=== PATIENT | female | born 1980 | race Caucasian/White ===

== ENCOUNTER 2018-07-11 04:16 | Emergency (ER) | payer MEDICAID, OTHER ==
[~2018-07-11] VITALS: Ht 170.2 cm; Wt 86.4 kg
[2018-07-11 04:16] VITALS: BP 149/85
[~2018-07-11 04:16] MED LIST: CARB200T PO; CHOL400C8 PO; LAMO200T2 PO; LORA1TAB PO; LYSI100013 PO; SERT50TA PO; ZOLP5TAB8 PO
[2018-07-11] MEDS ORDERED: ketorolac trometh inj. 60 MG/2 ML VIAL IM ONE (08:45)
== END 2018-07-11 10:33 | disposition home or self-care (01) ==
LOC: EEVIPCON 04:16 → ER 04:16
DX: T74.21XA Adult sexual abuse, confirmed, initial encounter (principal); R10.30 Lower abdominal pain, unspecified; G89.29 Other chronic pain; J45.909 Unspecified asthma, uncomplicated; F17.210 Nicotine dependence, cigarettes, uncomplicated; Z88.6 Allergy status to analgesic agent; Z88.5 Allergy status to narcotic agent; Z79.899 Other long term (current) drug therapy; Z60.2 Problems related to living alone; Y07.59 Other non-family member, perpetrator of maltreatment and neglect
CPT/HCPCS: 96372; 99284; J1885; 99283

== ENCOUNTER 2018-07-15 16:58 | Emergency (ER) | payer MEDICAID, OTHER ==
[~2018-07-15] VITALS: Ht 167.6 cm; Wt 86.4 kg
[2018-07-15 17:03] VITALS: BP 106/70
[2018-07-15] MEDS ORDERED: ketorolac trometh inj. 60 MG/2 ML VIAL IM ONE (18:30)
[2018-07-15] MEDS ORDERED: IBUP-1984 PO (18:46)
[2018-07-15] MEDS ORDERED: ORPH100T2 PO (18:46)
== END 2018-07-15 19:08 | disposition home or self-care (01) ==
LOC: ER 16:59
DX: M25.511 Pain in right shoulder (principal); J45.909 Unspecified asthma, uncomplicated; M79.7 Fibromyalgia; F12.90 Cannabis use, unspecified, uncomplicated; Z98.890 Other specified postprocedural states; Z98.51 Tubal ligation status; Z88.6 Allergy status to analgesic agent; Z88.5 Allergy status to narcotic agent; Z79.899 Other long term (current) drug therapy
CPT/HCPCS: 96372; 99283; J1885

== ENCOUNTER 2019-07-04 18:37 | Emergency (ER) | payer MEDICAID, OTHER ==
[~2019-07-04] VITALS: Ht 167.6 cm; Wt 90.9 kg
[~2019-07-04 18:37] MED LIST changes: +CYCL-1 PO; +ORPH100T2 PO
[2019-07-04 18:39] VITALS: BP 114/68
[2019-07-04] MEDS ORDERED: CLIN-96 PO (18:57)
== END 2019-07-04 19:12 | disposition home or self-care (01) ==
LOC: ER 18:38
DX: L03.317 Cellulitis of buttock (principal); J45.909 Unspecified asthma, uncomplicated; G89.29 Other chronic pain; F31.9 Bipolar disorder, unspecified; F12.90 Cannabis use, unspecified, uncomplicated; Z98.51 Tubal ligation status; Z98.890 Other specified postprocedural states; Z60.2 Problems related to living alone; Z88.5 Allergy status to narcotic agent; Z79.2 Long term (current) use of antibiotics; Z79.899 Other long term (current) drug therapy
CPT/HCPCS: 99283

== ENCOUNTER 2020-03-13 10:48 | Emergency (ER) | payer MEDICAID ==
[~2020-03-13] VITALS: Ht 167.6 cm; Wt 90.0 kg
[~2020-03-13 10:48] MED LIST changes: +CLIN-97 PO
[2020-03-13] MEDS ORDERED: CefTRIAXone 250MG IM Kit w/LIDOcaine IM ONE (11:25)
[2020-03-13] MEDS ORDERED: azithromycin 250mg tablet PO ONE (11:25)
[2020-03-13 11:42] LABS: CLARITY,URINE SLIGHTLY CLOUDY (Clear); COLOR,URINE YELLOW (Yellow); GLUCOSE, URINE NEGATIVE (Neg); KETONES,URINE NEGATIVE (Neg); LEUKOCYTE ESTERASE ,URINE SMALL (Neg); NITRITES, URINE NEGATIVE (Neg); OCCULT BLOOD,URINE SMALL (Neg); PH,URINE 5.5 (4.8-8.0); PROTEIN,URINE NEGATIVE (Neg); UROBILINOGEN,URINE 0.2 E.U/dL (0.2-1.0)
[2020-03-13 11:43] LABS: UA COLLECTION TYPE CLN CATCH MIDSTREAM
[2020-03-13 11:55] LABS: MUCUS STRANDS MANY /LPF (Neg); SQUAMOUS EPITHELIAL CELL,UR MANY /LPF (FEW)
[2020-03-13 11:57] LABS: BACTERIA,URINE FEW /HPF (Neg); RBC,URINE 0-2 /HPF (0-2)
[2020-03-13] MEDS ORDERED: METR-159 PO (12:31)
[2020-03-13 12:38] VITALS: BP 110/60
== END 2020-03-13 12:40 | disposition home or self-care (01) ==
LOC: ER 10:48
DX: N89.8 Other specified noninflammatory disorders of vagina (principal); A59.01 Trichomonal vulvovaginitis; J45.909 Unspecified asthma, uncomplicated; G89.29 Other chronic pain; M79.7 Fibromyalgia; F31.9 Bipolar disorder, unspecified; F12.90 Cannabis use, unspecified, uncomplicated; Z98.51 Tubal ligation status; Z98.890 Other specified postprocedural states; Z60.2 Problems related to living alone; Z88.5 Allergy status to narcotic agent; Z88.6 Allergy status to analgesic agent; Z79.899 Other long term (current) drug therapy
CPT/HCPCS: 36415; 81001; 87210; 87491; 87591; 96372; 99283; J0696

== ENCOUNTER 2020-12-01 14:29 | Emergency (ER) | payer MEDICAID ==
[~2020-12-01] VITALS: Ht 152.4 cm; Wt 90.0 kg
[2020-12-01] MEDS ORDERED: LIDOcaine 1% W/epiNEPHrine 1:200,000 10ml vial IJ ONE (14:45)
[2020-12-01] MEDS ORDERED: TETanus/Pertussis (Acell)/Diphther VAC/PF (Tdap-Adult) 0.5ml syringe IMVAC ONE (14:45)
[2020-12-01] MEDS ORDERED: LORazepam 1 MG tablet PO ONE (14:45)
[2020-12-01] MEDS ORDERED: CefTRIAXone 250MG IM Kit w/LIDOcaine IM ONE (15:15)
[2020-12-01] MEDS ORDERED: azithromycin 250mg tablet PO ONE (15:15)
[2020-12-01 15:26] LABS: BASOPHILS % (AUTO) 0.3 % (0-1); EOSINOPHILS # (AUTO) 0.1 X10'3 (0-0.9); EOSINOPHILS % (AUTO) 1.4 % (0-6); HEMATOCRIT 34.9 % (35.0-45.0); LYMPHOCYTES # (AUTO) 1.6 X10'3 (1.1-4.8); LYMPHOCYTES % (AUTO) 18.4 % (21-51); MEAN CORPUSCULAR HEMOGLOBIN 27.6 PG (27.0-31.0); MEAN CORPUSCULAR HGB CONC 34.3 g/dL (33.0-36.5); MEAN CORPUSCULAR VOLUME 80.4 FL (78-98); MEAN PLATELET VOLUME 6.9 FL (7.4-10.4); MONOCYTES # (AUTO) 0.5 X10'3 (0-0.9); NEUTROPHILS # (AUTO) 6.5 X10'3 (1.8-7.7); NEUTROPHILS % (AUTO) 73.9 % (42-75); PLATELET COUNT 363 X10'3 (140-440); RED BLOOD COUNT 4.33 X10'6 (4.20-5.60); RED CELL DISTRIBUTION WIDTH 13.7 % (11.5-14.5); WHITE BLOOD COUNT 8.8 X10'3 (4.5-11.0)
[2020-12-01 15:33] LABS: PARTIAL THROMBOPLASTIN TIME 25 SECONDS (22-32)
[2020-12-01 15:37] LABS: ALANINE AMINOTRANSFERASE 28 U/L (12-78); ALBUMIN/GLOBULIN RATIO 1.1 (1.1-1.5); ALKALINE PHOSPHATASE 62 IU/L (46-116); ANION GAP 10 (8-16); ASPARTATE AMINO TRANSFERASE 20 U/L (10-37); BILIRUBIN,TOTAL 0.3 MG/DL (0.1-1.0); BLOOD UREA NITROGEN 8 MG/DL (7-18); BUN/CREATININE RATIO 8.2 (6.6-38.0); CHLORIDE 105 MMOL/L (99-107); CREATININE 0.97 MG/DL (0.40-0.90); GLUCOSE 128 MG/DL (70-104); SODIUM 142 MMOL/L (135-145); TOTAL CARBON DIOXIDE 26.8 MMOL/L (24-32); TOTAL PROTEIN 7.5 G/DL (6.4-8.2); eGFR 64 ML/MIN
[2020-12-01 15:38] LABS: POTASSIUM 2.9 MMOL/L (3.5-5.1)
[2020-12-01 15:41] LABS: ETHANOL < 0.010 GM/DL (0.0-0.010)
[2020-12-01 15:46] LABS: URINE AMPHETAMINE SCREEN POSITIVE (Neg); URINE BARBITUATE SCREEN NEGATIVE (Neg); URINE BENZODIAZEPINES SCREEN NEGATIVE (Neg); URINE CANNABINOID SCREEN POSITIVE (Neg); URINE COCAINE SCREEN NEGATIVE (Neg); URINE METHADONE SCREEN NEGATIVE (Neg); URINE OPIATE SCREEN NEGATIVE (Neg); URINE PHENCYCLIDINE SCREEN NEGATIVE (Neg)
--- NOTE | 2020-12-01 16:13 | NUR ---
PATIENT TO [facility]AN WILL GIVE MEDICATIONS WHEN SHE RETURNS
[2020-12-01] MEDS ORDERED: potassium Cl 20 mEq SR tablet PO ONE (16:25)
[2020-12-01] MEDS ORDERED: magnesium oxide 400mg tablet PO ONE (16:25)
[2020-12-01] MEDS ORDERED: NAPR-56 PO (17:39)
--- NOTE | 2020-12-01 17:46 | NUR ---
PATIENT CALLING HER "KIDS DAD" TO GET A RIDE HOME TO [facility]
--- NOTE | 2020-12-01 17:48 | NUR ---
CALLED [phone] MAUREEN PATIENT'S KIDS DAD AND HE IS UNABLE TO PICK HER UP
[2020-12-01 17:55] VITALS: BP 115/74
--- NOTE | 2020-12-01 17:56 | NUR ---
ATTEMPTED TO CALL GRANDMOTHER AND LEFT MESSAGE TO CALL [facility] ER WITH DIRECT NUMBER
== END 2020-12-01 17:59 | disposition home or self-care (01) ==
LOC: ER 14:30
DX: S01.01XA Laceration without foreign body of scalp, initial encounter (principal); S06.0X0A Concussion without loss of consciousness, initial encounter; F31.9 Bipolar disorder, unspecified; E87.6 Hypokalemia; I10 Essential (primary) hypertension; J45.909 Unspecified asthma, uncomplicated; G89.29 Other chronic pain; F12.90 Cannabis use, unspecified, uncomplicated; Z20.3 Contact with and (suspected) exposure to rabies; Z20.2 Contact with and (suspected) exposure to infections with a predominantly sexual mode of transmission; Z98.51 Tubal ligation status; Z98.890 Other specified postprocedural states; Z60.2 Problems related to living alone; Z88.5 Allergy status to narcotic agent; Z88.6 Allergy status to analgesic agent; Z88.8 Allergy status to other drugs, medicaments and biological substances; Z79.2 Long term (current) use of antibiotics; Z79.899 Other long term (current) drug therapy; X58.XXXA Exposure to other specified factors, initial encounter; Y93.89 Activity, other specified; Y92.89 Other specified places as the place of occurrence of the external cause; Y99.8 Other external cause status
CPT/HCPCS: 12002; 36415; 70450; 80053; 80305; 80320; 83735; 85025; 85610; 85730; 86592; 87491; 87591; 90471; 90715; 96372; 99284; J0696

== ENCOUNTER → 2021-05-14 | Emergency (ER) | payer MEDICAID ==
[~2021-05-14] VITALS: Ht 167.6 cm; Wt 100.0 kg
[2021-05-14 17:11] VITALS: BP 110/70
== END | disposition left against medical advice (07) ==
LOC: ER 16:34
DX: M25.561 Pain in right knee (principal); Z53.21 Procedure and treatment not carried out due to patient leaving prior to being seen by health care provider

== ENCOUNTER 2021-06-15 07:31 | Emergency (ER) | payer MEDICAID ==
[~2021-06-15] VITALS: Ht 167.6 cm; Wt 90.9 kg
[2021-06-15 07:44] VITALS: BP 126/84
== END 2021-06-15 08:32 | disposition home or self-care (01) ==
LOC: ER 07:31
DX: S81.802D Unspecified open wound, left lower leg, subsequent encounter (principal); M25.512 Pain in left shoulder; G89.29 Other chronic pain; M79.604 Pain in right leg; F15.90 Other stimulant use, unspecified, uncomplicated; R20.0 Anesthesia of skin; I10 Essential (primary) hypertension; J45.909 Unspecified asthma, uncomplicated; F31.9 Bipolar disorder, unspecified; F12.90 Cannabis use, unspecified, uncomplicated; Z98.51 Tubal ligation status; Z98.890 Other specified postprocedural states; Z60.2 Problems related to living alone; Z88.5 Allergy status to narcotic agent; Z88.8 Allergy status to other drugs, medicaments and biological substances; Z88.6 Allergy status to analgesic agent; Z79.2 Long term (current) use of antibiotics; Z79.899 Other long term (current) drug therapy
CPT/HCPCS: 99284

== ENCOUNTER 2022-01-11 17:14 | Inpatient (IN) | payer MEDICAID ==
[~2022-01-11] VITALS: Ht 167.6 cm; Wt 90.9 kg
[2022-01-11 18:27] LABS: ALANINE AMINOTRANSFERASE 17 U/L (12-78); ALKALINE PHOSPHATASE 83 IU/L (46-116); ANION GAP 8 (8-16); ASPARTATE AMINO TRANSFERASE 12 U/L (10-37); BILIRUBIN,TOTAL 0.2 MG/DL (0.1-1.0); BLOOD UREA NITROGEN 10 MG/DL (7-18); BUN/CREATININE RATIO 11.1 (6.6-38.0); CALCIUM 9.2 MG/DL (8.5-10.1); CHLORIDE 104 MMOL/L (99-107); GLUCOSE 82 MG/DL (70-104); POTASSIUM 3.1 MMOL/L (3.5-5.1); SODIUM 141 MMOL/L (135-145); TOTAL CARBON DIOXIDE 28.9 MMOL/L (24-32); eGFR 70 ML/MIN
[2022-01-11 18:32] LABS: BASOPHILS % (AUTO) 0.2 % (0-1); EOSINOPHILS # (AUTO) 0.1 X10'3 (0-0.9); EOSINOPHILS % (AUTO) 0.5 % (0-6); HEMATOCRIT 37.4 % (35.0-45.0); HEMOGLOBIN 12.1 g/dl (12.0-16.0); LYMPHOCYTES # (AUTO) 0.8 X10'3 (1.1-4.8); LYMPHOCYTES % (AUTO) 5.1 % (21-51); MEAN CORPUSCULAR HEMOGLOBIN 25.9 PG (27.0-31.0); MEAN CORPUSCULAR HGB CONC 32.4 g/dL (33.0-36.5); MEAN PLATELET VOLUME 6.9 FL (7.4-10.4); MONOCYTES # (AUTO) 0.8 X10'3 (0-0.9); MONOCYTES % (AUTO) 4.9 % (2-12); NEUTROPHILS # (AUTO) 14.6 X10'3 (1.8-7.7); NEUTROPHILS % (AUTO) 89.3 % (42-75); PLATELET COUNT 350 X10'3 (140-440); RED BLOOD COUNT 4.67 X10'6 (4.20-5.60); RED CELL DISTRIBUTION WIDTH 14.9 % (11.5-14.5); WHITE BLOOD COUNT 16.3 X10'3 (4.5-11.0)
[2022-01-11] MEDS ORDERED: potassium Cl 20 mEq SR tablet PO STA (19:00)
[2022-01-11] MEDS ORDERED: CefTRIAXone 2gm/D5W 50ml BAG 50 ML IV ONE (19:05)
[2022-01-11] MEDS ORDERED: vancomycin/NS 1 GM ADD-VANTAGE 250 ML IV ONE (19:05)
[2022-01-11] MEDS ORDERED: magnesium 4gm in 100ml NS 100 ML IV PRN (19:45)
[2022-01-11] MEDS ORDERED: magnesium hydroxide 30ml (MOM) UD suspension PO PRN (19:45)
[2022-01-11] MEDS ORDERED: potassium CL 10mEq/100ml bag 100 ML IV PRN (19:45)
[2022-01-11] MEDS ORDERED: magnesium 2GM in 50ml NS 50 ML IV PRN (19:45)
[2022-01-11] MEDS ORDERED: ondansetron/PF 4mg/2ml inj IV PRN (19:45)
[2022-01-11] MEDS ORDERED: magnesium Cl slow-release 64mg tablet PO PRN (19:45)
[2022-01-11] MEDS ORDERED: potassium Cl 20 mEq SR tablet PO PRN ×2 (19:45)
[2022-01-11] MEDS ORDERED: mag hydrox/Alum hydrox/simeth 30ml oral suspension PO PRN (19:45)
[2022-01-11] MEDS ORDERED: acetaminophen 325mg tablet PO PRN ×2 (19:45)
[2022-01-11] MEDS ORDERED: acetaminophen 325mg tablet PO ONE (20:15)
[2022-01-11] MEDS: heparin, porcine 5000 units/ml vial SQ SCH (20:23)
[2022-01-11] MEDS: K and/or MAG REPLACEMENT MC SCH (20:24)
[2022-01-11] MEDS ORDERED: HYDROcodone/acetaminophen 5mg/325mg tablet PO PRN (20:50)
[2022-01-11] MEDS ORDERED: morphine 2 MG/ML inj. syringe IV PRN ×2 (20:50)
[2022-01-11] MEDS: nicotine 14mg patch - 24hr TD SCH (22:04)
[2022-01-11] MEDS: normal saline 1000ml 1,000 ML IV SCH (22:22)
[2022-01-11] MEDS: doxycycline inj 100 MG in normal saline 100ml IV soln 100 ML IV SCH (22:29)
[2022-01-11] MEDS: HYDROcodone/acetaminophen 10/325mg tab PO PRN (23:10)
[2022-01-12] VITALS: BP 119/70
[2022-01-12] MEDS: normal saline 1000ml 1,000 ML IV SCH ×2 (05:45→15:45)
--- NOTE | 2022-01-12 06:09 | NUR ---
Problems reprioritized. Patient report given, questions answered & plan of care reviewed with Beneditco RIVERA.
--- NOTE | 2022-01-12 06:31 | NUR ---
Patient in room [facility]. I have received report from MIGUEL Bliss and had the opportunity to ask questions and assume patient care.
[2022-01-12 06:35] LABS: BASOPHILS # (AUTO) 0.1 X10'3 (0-0.2); BASOPHILS % (AUTO) 0.6 % (0-1); EOSINOPHILS # (AUTO) 0.1 X10'3 (0-0.9); EOSINOPHILS % (AUTO) 0.9 % (0-6); HEMATOCRIT 38.1 % (35.0-45.0); HEMOGLOBIN 12.6 g/dl (12.0-16.0); LYMPHOCYTES # (AUTO) 1.2 X10'3 (1.1-4.8); LYMPHOCYTES % (AUTO) 11.5 % (21-51); MEAN CORPUSCULAR HEMOGLOBIN 26.5 PG (27.0-31.0); MEAN CORPUSCULAR HGB CONC 33.1 g/dL (33.0-36.5); MEAN CORPUSCULAR VOLUME 80.1 FL (78-98); MEAN PLATELET VOLUME 7.5 FL (7.4-10.4); MONOCYTES # (AUTO) 0.6 X10'3 (0-0.9); MONOCYTES % (AUTO) 5.8 % (2-12); NEUTROPHILS # (AUTO) 8.7 X10'3 (1.8-7.7); NEUTROPHILS % (AUTO) 81.2 % (42-75); PLATELET COUNT 328 X10'3 (140-440); RED BLOOD COUNT 4.76 X10'6 (4.20-5.60); WHITE BLOOD COUNT 10.7 X10'3 (4.5-11.0)
[2022-01-12 06:44] LABS: ALBUMIN 3.8 G/DL (3.4-5.0); ANION GAP 6 (8-16); BLOOD UREA NITROGEN 6 MG/DL (7-18); BUN/CREATININE RATIO 8.1 (6.6-38.0); CALCIUM 8.9 MG/DL (8.5-10.1); CHLORIDE 106 MMOL/L (99-107); CREATININE 0.74 MG/DL (0.40-0.90); GLUCOSE 82 MG/DL (70-104); POTASSIUM 3.9 MMOL/L (3.5-5.1); SODIUM 140 MMOL/L (135-145); TOTAL CARBON DIOXIDE 28.1 MMOL/L (24-32); eGFR 87 ML/MIN
[2022-01-12] MEDS: pantoprazole 40mg Tablet.DR PO SCH (07:30)
[2022-01-12 08:00] VITALS: BP 112/66
[2022-01-12] MEDS: nicotine 14mg patch - 24hr TD SCH (08:00)
[2022-01-12] MEDS: K and/or MAG REPLACEMENT MC SCH ×2 (08:00→20:00)
[2022-01-12] MEDS: HYDROcodone/acetaminophen 10/325mg tab PO PRN ×3 (08:40→19:35)
[2022-01-12] MEDS: heparin, porcine 5000 units/ml vial SQ SCH ×2 (08:41→19:34)
[2022-01-12] MEDS: doxycycline inj 100 MG in normal saline 100ml IV soln 100 ML IV SCH (08:47)
[2022-01-12 11:00] VITALS: BP 113/68
[2022-01-12] MEDS ORDERED: linezolid 600mg/300ml PREMIX 300 ML IV SCH (12:00)
[2022-01-12 12:35] LABS: CLARITY,URINE CLEAR (Clear); COLOR,URINE YELLOW (Yellow); GLUCOSE, URINE NEGATIVE (Neg); KETONES,URINE NEGATIVE (Neg); LEUKOCYTE ESTERASE ,URINE NEGATIVE (Neg); NITRITES, URINE NEGATIVE (Neg); OCCULT BLOOD,URINE SMALL (Neg); PROTEIN,URINE NEGATIVE (Neg); UROBILINOGEN,URINE 0.2 E.U/dL (0.2-1.0)
[2022-01-12 12:36] LABS: UA COLLECTION TYPE NON-SPECIFIED
[2022-01-12 12:43] LABS: SQUAMOUS EPITHELIAL CELL,UR FEW /LPF (FEW)
[2022-01-12 12:44] LABS: BACTERIA,URINE FEW /HPF (Neg); RBC,URINE 0-2 /HPF (0-2); WBC,URINE 0-4 /HPF (0-4)
[2022-01-12 12:45] LABS: URINE AMPHETAMINE SCREEN POSITIVE (Neg); URINE BARBITUATE SCREEN NEGATIVE (Neg); URINE BENZODIAZEPINES SCREEN NEGATIVE (Neg); URINE CANNABINOID SCREEN POSITIVE (Neg); URINE COCAINE SCREEN NEGATIVE (Neg); URINE METHADONE SCREEN NEGATIVE (Neg); URINE OPIATE SCREEN POSITIVE (Neg); URINE PHENCYCLIDINE SCREEN NEGATIVE (Neg)
[2022-01-12] MEDS ORDERED: LIDOcaine 1% (10mg/ml) 2ml vial ONE ×2 (15:35→15:36)
[2022-01-12 16:14] LABS: URINE HCG NEGATIVE (NEG)
[2022-01-12 16:22] LABS: C-REACTIVE PROTEIN 8.38 MG/DL (0.0-0.5)
--- NOTE | 2022-01-12 16:30 | NUR ---
Dr Beauchamp did a I&D at bedside. Lidocaine administered by MD prior to I&D. Per MD. patient may need to go to OR in AM for another I&D. swelling of the hand is still present warm to touch, and red.
[2022-01-12] MEDS: piperacillin/tazo 3.375gm/50ml 50 ML IV SCH (16:54)
--- NOTE | 2022-01-12 18:23 | NUR ---
Patient in room [facility]. I have received report from Benedicto RIVERA and had the opportunity to ask questions and assume patient care.
--- NOTE | 2022-01-12 18:23 | NUR ---
Problems reprioritized. Patient report given, questions answered & plan of care reviewed with MIGUEL Bliss.
[2022-01-12 19:00] VITALS: BP 130/80
[2022-01-13] VITALS: BP 137/87
[2022-01-13] MEDS: piperacillin/tazo 3.375gm/50ml 50 ML IV SCH ×4 (00:18→23:40)
[2022-01-13] MEDS: normal saline 1000ml 1,000 ML IV SCH ×3 (00:23→19:06)
[2022-01-13] MEDS: linezolid 600mg/300ml PREMIX 300 ML IV SCH ×2 (01:56→15:04)
--- NOTE | 2022-01-13 06:00 | NUR ---
Problems reprioritized. Patient report given, questions answered & plan of care reviewed with Bianka RIVERA.
[2022-01-13 06:58] LABS: ALBUMIN 3.1 G/DL (3.4-5.0); ANION GAP 2 (8-16); BLOOD UREA NITROGEN 4 MG/DL (7-18); C-REACTIVE PROTEIN 7.89 MG/DL (0.0-0.5); CALCIUM 8.5 MG/DL (8.5-10.1); CHLORIDE 108 MMOL/L (99-107); CREATININE 0.57 MG/DL (0.40-0.90); GLUCOSE 91 MG/DL (70-104); SODIUM 139 MMOL/L (135-145); eGFR > 90 ML/MIN
[2022-01-13 07:00] VITALS: BP 132/80
[2022-01-13 07:05] LABS: BASOPHILS % (AUTO) 0.3 % (0-1); EOSINOPHILS # (AUTO) 0.3 X10'3 (0-0.9); EOSINOPHILS % (AUTO) 3.4 % (0-6); HEMATOCRIT 33.1 % (35.0-45.0); LYMPHOCYTES # (AUTO) 0.9 X10'3 (1.1-4.8); LYMPHOCYTES % (AUTO) 11.1 % (21-51); MEAN CORPUSCULAR HEMOGLOBIN 26.6 PG (27.0-31.0); MEAN CORPUSCULAR HGB CONC 33.1 g/dL (33.0-36.5); MEAN CORPUSCULAR VOLUME 80.2 FL (78-98); MEAN PLATELET VOLUME 7.1 FL (7.4-10.4); MONOCYTES # (AUTO) 0.6 X10'3 (0-0.9); NEUTROPHILS # (AUTO) 6.5 X10'3 (1.8-7.7); NEUTROPHILS % (AUTO) 78.2 % (42-75); PLATELET COUNT 277 X10'3 (140-440); RED BLOOD COUNT 4.13 X10'6 (4.20-5.60); RED CELL DISTRIBUTION WIDTH 15.1 % (11.5-14.5); WHITE BLOOD COUNT 8.3 X10'3 (4.5-11.0)
[2022-01-13] MEDS: heparin, porcine 5000 units/ml vial SQ SCH ×2 (07:51→19:06)
[2022-01-13] MEDS: pantoprazole 40mg Tablet.DR PO SCH (07:57)
[2022-01-13] MEDS: nicotine 14mg patch - 24hr TD SCH (07:57)
[2022-01-13] MEDS: K and/or MAG REPLACEMENT MC SCH ×2 (08:00→19:00)
[2022-01-13] MEDS ORDERED: HYDROmorphone/PF 0.2 MG/ML SYRINGE IV PRN ×2 (10:20)
[2022-01-13] MEDS ORDERED: meperidine/PF 25mg/ml syringe IV PRN (10:20)
[2022-01-13] MEDS ORDERED: acetaminophen 1,000mg/100ml IV 100 ML IV PRN (10:20)
[2022-01-13] MEDS ORDERED: labetalol 20mg/4ml (5mg/ml) syringe IV PRN (10:20)
[2022-01-13] MEDS ORDERED: ondansetron/PF 4mg/2ml inj IV PRN (10:20)
[2022-01-13] MEDS ORDERED: morphine 4 MG/ML inj SYRINge IV PRN (10:20)
[2022-01-13] MEDS ORDERED: hydrALAZINE 20mg/ml inj. IV PRN (10:20)
[2022-01-13] MEDS ORDERED: ringers solution, lacted 1,000 ML IV SCH (10:20)
[2022-01-13] MEDS ORDERED: proCHLORperazine 10 MG/2 ml inj IV PRN (10:20)
[2022-01-13] MEDS ORDERED: morphine 2 MG/ML inj. syringe IV PRN (10:20)
[2022-01-13] MEDS ORDERED: famotidine/PF 10 mg/ml inj IV ONE (10:49)
--- NOTE | 2022-01-13 11:20 | NUR ---
Zyvox consult: Note pt currently on zyvox. Provided pt w/ written and verbal low tyramine diet ed w/ RD contact info. Addendum: 01/13/22 at [address] Amended: Links added.
[2022-01-13 11:43] VITALS: BP 136/85
--- NOTE | 2022-01-13 11:55 | NUR ---
VO from dr willoughby to dc all narcotic pain meds
[2022-01-13 18:00] VITALS: BP 145/87
[2022-01-13 23:48] VITALS: BP 131/76
[2022-01-14] VITALS (9 sets, daily range): BP systolic 129–151; BP diastolic 66–96
[2022-01-14] MEDS: linezolid 600mg/300ml PREMIX 300 ML IV SCH ×2 (01:38→13:05)
[2022-01-14] MEDS: piperacillin/tazo 3.375gm/50ml 50 ML IV SCH ×2 (07:06→16:00)
[2022-01-14] MEDS: nicotine 14mg patch - 24hr TD SCH (07:08)
[2022-01-14] MEDS: heparin, porcine 5000 units/ml vial SQ SCH (07:08)
[2022-01-14 07:14] LABS: BASOPHILS % (AUTO) 0.5 % (0-1); EOSINOPHILS # (AUTO) 0.3 X10'3 (0-0.9); EOSINOPHILS % (AUTO) 5.8 % (0-6); HEMATOCRIT 36.5 % (35.0-45.0); HEMOGLOBIN 11.9 g/dl (12.0-16.0); LYMPHOCYTES # (AUTO) 0.9 X10'3 (1.1-4.8); LYMPHOCYTES % (AUTO) 15.4 % (21-51); MEAN CORPUSCULAR HEMOGLOBIN 26.2 PG (27.0-31.0); MEAN CORPUSCULAR HGB CONC 32.6 g/dL (33.0-36.5); MEAN CORPUSCULAR VOLUME 80.5 FL (78-98); MEAN PLATELET VOLUME 6.9 FL (7.4-10.4); MONOCYTES # (AUTO) 0.4 X10'3 (0-0.9); MONOCYTES % (AUTO) 6.4 % (2-12); NEUTROPHILS # (AUTO) 4.3 X10'3 (1.8-7.7); NEUTROPHILS % (AUTO) 71.9 % (42-75); PLATELET COUNT 319 X10'3 (140-440); RED BLOOD COUNT 4.53 X10'6 (4.20-5.60); RED CELL DISTRIBUTION WIDTH 15.1 % (11.5-14.5)
[2022-01-14] MEDS: pantoprazole 40mg Tablet.DR PO SCH (07:30)
[2022-01-14] MEDS: normal saline 1000ml 1,000 ML IV SCH (07:45)
[2022-01-14 07:46] LABS: ALBUMIN 3.1 G/DL (3.4-5.0); ANION GAP 9 (8-16); BLOOD UREA NITROGEN 4 MG/DL (7-18); BUN/CREATININE RATIO 5.5 (6.6-38.0); CALCIUM 8.9 MG/DL (8.5-10.1); CHLORIDE 106 MMOL/L (99-107); CREATININE 0.73 MG/DL (0.40-0.90); GLUCOSE 93 MG/DL (70-104); POTASSIUM 4.1 MMOL/L (3.5-5.1); SODIUM 141 MMOL/L (135-145); TOTAL CARBON DIOXIDE 25.9 MMOL/L (24-32); eGFR 89 ML/MIN
[2022-01-14] MEDS: K and/or MAG REPLACEMENT MC SCH (08:00)
--- NOTE | 2022-01-14 09:39 | NUR ---
dr bennett stated that pt declined I&D, TO to ok for d/c home 01/13/22 with PO abx (poss. Bactrim or whatever abx hospitalist prefers)
--- NOTE | 2022-01-14 09:45 | NUR ---
Message: Dr. Beauchamp stated that the patient didn't want the procedure and she is cleared to be discharged. His number [phone] if needed. Becka [id number]
--- NOTE | 2022-01-14 11:09 | NUR ---
Message: Dr. Beauchamp will take her today at 1430 to the OR. She is still NPO so no worries there. Thank you . Becka [id number] Transaction number: [id number]
[2022-01-14 11:55] LABS: PRE OP PROTIME 10.2 SECONDS (9.0-12.0)
--- NOTE | 2022-01-14 11:55 | NUR ---
Met with patient in regards to substance use and to see if patient was interested in resources for treatment options. Patient would like to go to rehab. Patient is not sure if she wants inpatient or outpatient rehab at this time. I gave patient [facility] number to start that process and my card so she can call me with any questions. I will follow back up with patient and see if she needs any help with anything.
[2022-01-14] MEDS ORDERED: vancomycin 1,000mg inj ONE (14:03)
[2022-01-14] MEDS ORDERED: BUPIVAcaine 0.5% inj/PF 30 ML ONE (14:03)
[2022-01-14] MEDS ORDERED: morphine 4 MG/ML inj SYRINge IV PRN (15:30)
[2022-01-14] MEDS ORDERED: ondansetron/PF 4mg/2ml inj IV PRN (15:30)
[2022-01-14] MEDS ORDERED: ringers solution, lacted 1,000 ML IV SCH (15:30)
[2022-01-14] MEDS ORDERED: morphine 2 MG/ML inj. syringe IV PRN (15:30)
[2022-01-14] MEDS ORDERED: proCHLORperazine 10 MG/2 ml inj IV PRN (15:30)
[2022-01-14] MEDS ORDERED: meperidine/PF 25mg/ml syringe IV PRN ×3 (15:30)
[2022-01-14] MEDS ORDERED: sevoflurane 250ml liquid IH ONE (15:42)
[2022-01-14] MEDS ORDERED: fentaNYL/PF 50MCG/1 ML 2ML syringe ONE (15:51)
[2022-01-14] MEDS ORDERED: midazolam 1 mg/ML 2ml injection ONE (15:52)
[2022-01-14] MEDS ORDERED: propofol inj 20 ML IV ONE (15:52)
--- NOTE | 2022-01-14 16:29 | NUR ---
Received from OR via HOSPITAL BED , accompanied by Anesthesiologist DR SELBY and report given by Anesthesiolgist. PT PRESENT WITH 20G RIGHT WRIST, DRESSING ON LEFT HAND 4TH DIGIT DRY AND INTACT. VSS. Addendum: 01/14/22 at 1644 by Ayala Selby RN, RN Amended: Links added.
--- NOTE | 2022-01-14 17:29 | NUR ---
Report called to receiving nurse SAL RIVERA. Transferred via HOSPITAL BED BACKT O ROOM 340A. Belongings WERE LEFT IN PT ROOOM BEFORE PT WENT TO SURGERY. BED INLOWLOCKED POSITION WITH CALL LIGHT IN REACH. Special Issues communicated to receiving nurse. Addendum: 01/14/22 at 1745 by Ayala Selby RN RN Amended: Links added.
--- NOTE | 2022-01-14 18:29 | NUR ---
after returning to unit from PACU pt was seen leaving on the elevator with belongings, multiple attempts were made to request that pt allow iv catheter to be removed. security was called to be made aware and stated that the pt was seen in the lobby. pt refused to stop for staff. [place] police called to make report
--- NOTE | 2022-01-14 18:34 | NUR ---
message to dr willoughby "Message: [address] Louis left with IV, ~Bianka allen [phone]"
[2022-01-15] MEDS ORDERED: AMOX-117 PO (19:15)
[2022-01-15] MEDS ORDERED: DOXY100T56 PO (19:15)
[2022-01-15] MEDS ORDERED: FLUC150T22 PO (19:29)
== END 2022-01-14 17:57 | disposition left against medical advice (07) | DRG 710 ==
LOC: ER 17:15 → ED HOLD 19:47 → SUR 3N 22:50
PROVIDERS: ADMIT Internal Medicine; ATTEND Family Medicine
PROC: 0LB80ZZ Excision of Left Hand Tendon, Open Approach (ICD-10-PCS; principal; 2022-01-14 15:42)
DX: A41.9 Sepsis, unspecified organism (principal); E87.6 Hypokalemia; F12.90 Cannabis use, unspecified, uncomplicated; F17.210 Nicotine dependence, cigarettes, uncomplicated; G89.29 Other chronic pain; L03.012 Cellulitis of left finger; L02.512 Cutaneous abscess of left hand; Z20.822 Contact with and (suspected) exposure to COVID-19; J45.909 Unspecified asthma, uncomplicated; Z53.29 Procedure and treatment not carried out because of patient's decision for other reasons; F15.10 Other stimulant abuse, uncomplicated; F31.9 Bipolar disorder, unspecified; I10 Essential (primary) hypertension; S61.215A Laceration without foreign body of left ring finger without damage to nail, initial encounter; W45.8XXA Other foreign body or object entering through skin, initial encounter; Y93.89 Activity, other specified; Y92.89 Other specified places as the place of occurrence of the external cause; Y99.8 Other external cause status; Z83.3 Family history of diabetes mellitus; Z98.891 History of uterine scar from previous surgery; Z98.51 Tubal ligation status
CPT/HCPCS: 36415; 71045; 73140; 80048; 80053; 80305; 81001; 81025; 82948; 83605; 84145; 85025; 85610; 86140; 87040; 87081; 87635; 93005; 99285; A4215; A4618; A6222; A6402; A7000; G0378; J0696; J1644; J2020; J2250; J2543; J2704; J3010; J3370; J3490; J7030; J7120; S0020

== ENCOUNTER 2022-01-15 16:06 | Emergency (ER) | payer MEDICAID ==
[~2022-01-15] VITALS: Ht 167.6 cm; Wt 90.9 kg
[2022-01-15] MEDS ORDERED: DOXY100T56 PO (19:15)
[2022-01-15] MEDS ORDERED: AMOX-117 PO (19:15)
[2022-01-15] MEDS ORDERED: DOXYCYCLINE 100MG CAPSULE PO STA (19:20)
[2022-01-15] MEDS ORDERED: amox tr/potassium clavulanate 875/125mg TAB PO ONE (19:20)
[2022-01-15] MEDS ORDERED: FLUC150T22 PO (19:29)
[2022-01-15 19:34] VITALS: BP 144/86
== END 2022-01-15 19:31 | disposition home or self-care (01) ==
LOC: ER 16:06
DX: Z48.1 Encounter for planned postprocedural wound closure (principal); M79.645 Pain in left finger(s); I10 Essential (primary) hypertension; J45.909 Unspecified asthma, uncomplicated; G89.29 Other chronic pain; F31.9 Bipolar disorder, unspecified; F12.90 Cannabis use, unspecified, uncomplicated; Z98.51 Tubal ligation status; Z98.890 Other specified postprocedural states; Z60.2 Problems related to living alone; Z79.2 Long term (current) use of antibiotics
CPT/HCPCS: 99283

== ENCOUNTER 2022-05-14 00:51 | Emergency (ER) | payer MEDICAID ==
[~2022-05-14] VITALS: Ht 167.6 cm; Wt 79.5 kg
[2022-05-14 01:07] VITALS: BP 136/94
[2022-05-14] MEDS ORDERED: CLIN150C8 PO (02:27)
== END 2022-05-14 02:40 | disposition home or self-care (01) ==
LOC: ER 00:51
DX: L72.3 Sebaceous cyst (principal); I10 Essential (primary) hypertension; J45.909 Unspecified asthma, uncomplicated; G89.29 Other chronic pain; M79.7 Fibromyalgia; F12.90 Cannabis use, unspecified, uncomplicated; Z98.891 History of uterine scar from previous surgery; Z98.51 Tubal ligation status; Z79.2 Long term (current) use of antibiotics
CPT/HCPCS: 99283

== ENCOUNTER 2023-05-25 06:17 | Emergency (ER) | payer MEDICAID ==
[~2023-05-25] VITALS: Ht 167.6 cm; Wt 114.0 kg
[~2023-05-25 06:17] MED LIST changes: -CARB200T PO; -CHOL400C8 PO; +CLIN-214 PO; -CLIN-97 PO; -CYCL-1 PO; -LAMO200T2 PO; -LORA1TAB PO; -LYSI100013 PO; -ORPH100T2 PO; -SERT50TA PO; -ZOLP5TAB8 PO
[2023-05-25 06:25] VITALS: BP 156/108
--- NOTE | 2023-05-25 06:48 | NUR ---
Patient reports she recently got out of intermediate and has been walking for 4 days and concern for withdrawl as her last methadone was 2 days ago, didn't finish her antibiotics for a uti, and concerned she may bc of the edema to lower legs.
[2023-05-25] MEDS ORDERED: furosemide 20MG tablet PO ONE (06:50)
[2023-05-25] MEDS ORDERED: FURO-149 PO (06:51)
== END 2023-05-25 07:00 | disposition home or self-care (01) ==
LOC: ER 06:17
DX: R22.43 Localized swelling, mass and lump, lower limb, bilateral (principal); I10 Essential (primary) hypertension; J45.909 Unspecified asthma, uncomplicated; G89.29 Other chronic pain; F12.90 Cannabis use, unspecified, uncomplicated; M79.7 Fibromyalgia; Z98.891 History of uterine scar from previous surgery; Z98.51 Tubal ligation status; Z79.2 Long term (current) use of antibiotics; Z79.899 Other long term (current) drug therapy
CPT/HCPCS: 99283